=== PATIENT | female | born 1985 | race American Indian/Alaskan Native ===

== ENCOUNTER 2021-09-15 16:27 | Emergency (ER) | payer MEDICAID ==
[2021-09-15 16:31] VITALS: BP 116/80
== END 2021-09-15 19:17 | disposition left against medical advice (07) ==
LOC: ED 16:27
DX: F19.90 Other psychoactive substance use, unspecified, uncomplicated (principal); Z53.21 Procedure and treatment not carried out due to patient leaving prior to being seen by health care provider